=== PATIENT | female | born 1945 | race Caucasian/White ===

== ENCOUNTER 2018-01-03 16:17 | Emergency (ER) | payer OTHER ==
[~2018-01-03] VITALS: Ht 162.6 cm; Wt 52.2 kg
[~2018-01-03 16:17] MED LIST: ALBU90OI6 INH; ALEN70 PO; ALPR.25 PO; AMLO5 PO; ANAS1 PO; ATECHL PO; ATEN50 PO; Anastrozole1 GM MC; Antivert25 MG PO; BENAML20/5 PO; BENZ100A PO; BUSP15 PO; BUSP5 PO; CALCA600CH PO; CETI5 PO; CHLCLI PO; CHLORDIAZEPOXIDE; CLIDINIUM; CLON.1; CODBUTACEC PO; CODBUTASA PO; CONEST.625; ESCI20 PO; GABA100 PO; HYDACE5; HYDCHL25 PO; HYDR-86; IBUP800 PO; IMIP25; IMIP50 PO; LISI20; LORA1 PO; LOSA50; METO50ER; Micro-K10 MEQ; NAPR500 PO; OLAN2.5; OMEPRAZOLE MAGN20 MG; OXYB5; PARO20; PARO20 PO; POTCHL10ER PO; PROCODE120 PO; PROM25; PROM25 PO; RXPROCODSY PO; STOOL SOFTNERS; TRAZ100; TRAZ100 PO; VARE1 PO; VERA100; VERA100 PO; VERA180ERB PO; [UNRECOGNIZED DRUG - OTHER]
[2018-01-03] MEDS ORDERED: Norco 5-325 Ta1 EACH PO (18:16)
[2018-01-03] MEDS ORDERED: Colace100 MG PO (18:16)
== END 2018-01-03 18:26 | disposition home or self-care (01) ==
LOC: ER 16:17
DX: S82.65XA Nondisplaced fracture of lateral malleolus of left fibula, initial encounter for closed fracture (principal); I10 Essential (primary) hypertension; G40.909 Epilepsy, unspecified, not intractable, without status epilepticus; F17.200 Nicotine dependence, unspecified, uncomplicated; Z88.8 Allergy status to other drugs, medicaments and biological substances; Z79.899 Other long term (current) drug therapy; W06.XXXA Fall from bed, initial encounter
CPT/HCPCS: 29515; 73590; 73630; 99283

== ENCOUNTER 2018-01-12 12:09 | Day surgery (SDC) | payer OTHER ==
[~2018-01-12] VITALS: Ht 165.1 cm; Wt 50.9 kg
[~2018-01-12 12:09] MED LIST changes: +Colace100 MG PO; +Norco 5-325 Ta1 EACH PO
== END 2018-01-12 16:15 | disposition home or self-care (01) ==
LOC: ORSCSDS 12:09
PROVIDERS: Podiatrist Foot & Ankle Surgery
PROC: 0QSK04Z Reposition Left Fibula with Internal Fixation Device, Open Approach (ICD-10-PCS; principal; 2018-01-12 14:30)
DX: S82.62XA Displaced fracture of lateral malleolus of left fibula, initial encounter for closed fracture (principal); I10 Essential (primary) hypertension; J44.9 Chronic obstructive pulmonary disease, unspecified; F17.210 Nicotine dependence, cigarettes, uncomplicated; K21.9 Gastro-esophageal reflux disease without esophagitis; Z79.899 Other long term (current) drug therapy
CPT/HCPCS: C1713; J0171; J0690; J1170; J2250; J2405; J3010; J7120

== ENCOUNTER 2018-11-11 09:50 | Observation (INO) | payer OTHER ==
[~2018-11-11] VITALS: Ht 165.1 cm; Wt 47.7 kg
[~2018-11-11 09:50] MED LIST changes: -CLON.1; +CLON.1 PO; -OMEPRAZOLE MAGN20 MG; +OMEPRAZOLE MAGN20 MG PO; -OXYB5; +OXYB5 PO
[2018-11-11] MEDS ORDERED: ALBU90OI61 INH (10:00)
[2018-11-11 10:23] LABS: BASOPHILS ABSOLUTE AUTO 0.06 K/mm3 (0.00-0.23); BASOPHILS PERCENT AUTO 0 % (0-2); EOSINOPHILS ABSOLUTE AUTO 0.11 K/mm3 (0.00-0.68); EOSINOPHILS PERCENT AUTO 1 % (0-6); Hematocrit 43.3 % (33.0-51.0); Hemoglobin 14.8 g/dL (11.5-16.0); IMMATURE GRAN ABSOLUTE AUTO 0.06 K/mm3 (0.00-0.10); IMMATURE GRAN PERCENT AUTO 0 % (0-1); LYMPHOCYTES PERCENT AUTO 25 % (21-46); MONOCYTES ABSOLUTE AUTO 0.99 K/mm3 (0.16-1.47); MONOCYTES PERCENT AUTO 7 % (4-13); Mean Corpuscular HGB 29.8 pg (26.0-34.0); Mean Corpuscular HGB Conc 34.2 g/dL (31.5-36.5); Mean Corpuscular Volume 87 fL (80-100); Mean Platelet Volume 12.2 fL (9.1-12.4); NEUTROPHILS ABSOLUTE AUTO 9.86 K/mm3 (1.96-9.15); NEUTROPHILS PERCENT AUTO 67 % (41-73); Platelet Count 206 K/mm3 (150-400); RDW Coefficient Variation 12.1 % (11.7-14.2); RDW Standard Deviation 38.7 fL (35.1-46.3); Red Blood Cell Count 4.97 M/mm3 (3.80-5.20); White Blood Cell Count 14.68 K/mm3 (4.00-11.30)
[2018-11-11 10:32] LABS: Alanine Aminotransfer (ALT/SGP 8 U/L (12-78); Albumin, Blood 4.6 g/dL (3.4-5.0); Albumin/Globulin Ratio 1.2 (0.8-1.8); Alk Phos 81 U/L (50-136); Anion Gap 14 mmol/L (6-16); Aspartate Aminotrans (AST/SGOT 20 U/L (12-37); Bilirubin, Total 1.2 mg/dL (0.1-1.0); Blood Urea Nitrogen 10 mg/dL (8-24); Bun/Creatinine Ratio 12.8 (12.0-20.0); CO2, Blood 27 mmol/L (21-32); Calcium, Blood 10.8 mg/dL (8.5-10.1); Chloride, Blood 94 mmol/L (98-108); Creatinine, Blood 0.78 mg/dL (0.40-1.00); Globulin, Blood 3.8 g/dL (2.2-4.0); Glomerular Filtration Rate >60 (60-); Glucose, Blood 115 mg/dL (70-99); Potassium, Blood 2.8 mmol/L (3.5-5.5); Sodium, Blood 135 mmol/L (136-145); Total Protein, Blood 8.4 g/dL (6.4-8.2)
[2018-11-11 12:32] LABS: Source, Urine Clean Catch
[2018-11-11 12:49] LABS: Appearance, Urine Clear (Clear); Bilirubin, Urine Neg (Neg); Blood, Urine 1+ (Neg); Color, Urine Yellow (P-Yellow); Glucose Qualitative, Urine Neg (Neg); Ketones, Urine 3+ (Neg); Leukocyte Esterase, Urine Neg (Neg); Nitrite, Urine Neg (Neg); Protein, Urine 1+ (Neg); Specific Gravity, Urine 1.005 (1.003-1.022); Urobilinogen, Urine NORM (Normal)
[2018-11-11 13:08] LABS: Red Blood Cells, Urine 0-2 /hpf (0-2); Squamous Epithelial Cells Few /hpf (Few)
[2018-11-11 13:10] LABS: Bacteria Not Seen /hpf; White Blood Cells, Urine Rare /hpf (0-5)
[2018-11-11 13:11] LABS: Amorphous Light (0-Heavy)
[2018-11-11 15:18] LABS: Troponin I <0.015 ng/mL (0.000-0.040)
[2018-11-11] MEDS ORDERED: MELO7.5 PO (16:36)
[2018-11-11] MEDS ORDERED: BACL10 PO (16:37)
[2018-11-11] MEDS ORDERED: LOSA50 PO (16:37)
[2018-11-11] MEDS ORDERED: ALBU3IS NEB (16:38)
--- NOTE | 2018-11-12 05:13 | NUR ---
SHIFT SUMMARY PT A&O X4 T/O SHIFT. PT STS HEADACHE IMPROVED TO /10 EARLY THIS AM; PAIN MANAGED PER EMAR. NO CHANGES IN NEURO CHECKS NOTED. RA; PT DENIES SOB AND CP. TELEMETRY IN PLACE; SB PER METHODOLOGIST. NAUSEA X1. BED ALARM AND SIDE RAILS X3 FOR SAFETY. PT REPOSITIONS PT CALLS APPROPRIATELY CALL LIGHT IN REACH; PT DEMONSTRATES USE. SBA TO TOILET; ATTENDS CHANGED PRN. WCTM UNTIL REPORT TO DAY SHIFT RN.
[2018-11-12 06:05] LABS: BASOPHILS ABSOLUTE AUTO 0.01 K/mm3 (0.00-0.23); BASOPHILS PERCENT AUTO 0 % (0-2); EOSINOPHILS PERCENT AUTO 0 % (0-6); Hematocrit 33.9 % (33.0-51.0); Hemoglobin 11.4 g/dL (11.5-16.0); IMMATURE GRAN ABSOLUTE AUTO 0.05 K/mm3 (0.00-0.10); IMMATURE GRAN PERCENT AUTO 1 % (0-1); LYMPHOCYTES ABSOLUTE AUTO 1.26 K/mm3 (0.84-5.20); LYMPHOCYTES PERCENT AUTO 14 % (21-46); MONOCYTES PERCENT AUTO 10 % (4-13); Mean Corpuscular HGB 29.7 pg (26.0-34.0); Mean Corpuscular HGB Conc 33.6 g/dL (31.5-36.5); Mean Corpuscular Volume 88 fL (80-100); Mean Platelet Volume 12.2 fL (9.1-12.4); NEUTROPHILS ABSOLUTE AUTO 6.94 K/mm3 (1.96-9.15); NEUTROPHILS PERCENT AUTO 76 % (41-73); Platelet Count 133 K/mm3 (150-400); RDW Standard Deviation 38.6 fL (35.1-46.3); Red Blood Cell Count 3.84 M/mm3 (3.80-5.20); White Blood Cell Count 9.16 K/mm3 (4.00-11.30)
[2018-11-12 06:30] LABS: Anion Gap 8 mmol/L (6-16); Blood Urea Nitrogen 11 mg/dL (8-24); Bun/Creatinine Ratio 16.4 (12.0-20.0); CO2, Blood 24 mmol/L (21-32); Chloride, Blood 103 mmol/L (98-108); Creatinine, Blood 0.67 mg/dL (0.40-1.00); Glomerular Filtration Rate >60 (60-); Glucose, Blood 101 mg/dL (70-99); Potassium, Blood 3.7 mmol/L (3.5-5.5); Sodium, Blood 135 mmol/L (136-145)
[2018-11-12 06:38] LABS: Calcium, Blood 8.3 mg/dL (8.5-10.1)
--- NOTE | 2018-11-12 11:30 | NUR ---
Patient was sitting up in bed and alert when I entered the room. I introduced myself and patient welcomed me to stay. Patient immediately shared about some family unit complications and that she was possibly going home this day. I listened empathically, explored patient's belief system, explored sources of meaning, conducted a life/family history review, reinforced helpful attitudes and practices and provided prayer. Patient responded well to all interventions and showed signs of restored waqas and an elevated mood. Patient thanked me for the prayer and stated that the prayer "got to her heart."
[2018-11-12] MEDS ORDERED: NICO21TP TOP (12:15)
[2018-11-12] MEDS ORDERED: ONDA4ODT SL (12:16)
[2018-11-12] MEDS ORDERED: PROM25 PO (12:17)
[2018-11-12] MEDS ORDERED: SUMA25 PO (12:18)
[2018-11-12] MEDS ORDERED: Benadryl 50 mg50 MG PO (12:20)
[2018-11-12] MEDS ORDERED: TUMS300 MG PO (12:21)
[2018-11-12] MEDS ORDERED: NAPR500 PO (12:22)
--- NOTE | 2018-11-12 13:55 | NUR ---
PATIENT D/C'D HOME WITH DAUGHTER AT THIS TIME; BOTH STATE UNDERSTANDING OF MEDS, F/U APPTS, ETC. TOLERATING PO. VOIDING. PATIENT W/O C/O AT THIS TIME.
== END 2018-11-12 13:59 | disposition home or self-care (01) ==
LOC: ER 09:50 → MEDS 09:51 → SURS 16:44
PROVIDERS: Emergency Medicine; ADMIT Family Medicine
DX: G43.511 Persistent migraine aura without cerebral infarction, intractable, with status migrainosus (principal); I48.91 Unspecified atrial fibrillation; E87.6 Hypokalemia; D72.829 Elevated white blood cell count, unspecified; I12.9 Hypertensive chronic kidney disease with stage 1 through stage 4 chronic kidney disease, or unspecified chronic kidney disease; N18.3 Chronic kidney disease, stage 3 (moderate); F41.9 Anxiety disorder, unspecified; F32.9 Major depressive disorder, single episode, unspecified; F17.210 Nicotine dependence, cigarettes, uncomplicated; Z79.01 Long term (current) use of anticoagulants; Z88.8 Allergy status to other drugs, medicaments and biological substances; Z79.899 Other long term (current) drug therapy
CPT/HCPCS: 36415; 70450; 80048; 80053; 81001; 84443; 84484; 85025; 96361; 96365; 96366; 96367; 96375; 96376; 99285-25; G0378; J0360; J0780; J1100; J1200; J1650; J1885; J2405; J3010; J3475; J3480; J7030

== ENCOUNTER 2018-12-26 06:11 | Observation (INO) | payer OTHER ==
[~2018-12-26] VITALS: Ht 165.1 cm; Wt 41.3 kg
[~2018-12-26 06:11] MED LIST changes: +ALBU3IS NEB; +ALBU90OI61 INH; +BACL10 PO; +Benadryl 50 mg50 MG PO; +Golytely Packe1 EACH PO; +LOSA50 PO; +MELO7.5 PO; +NICO21TP TOP; +ONDA4ODT SL; +SUMA25 PO; +TUMS300 MG PO
[2018-12-26 06:50] LABS: BASOPHILS ABSOLUTE AUTO 0.04 K/mm3 (0.00-0.23); BASOPHILS PERCENT AUTO 1 % (0-2); EOSINOPHILS ABSOLUTE AUTO 0.14 K/mm3 (0.00-0.68); EOSINOPHILS PERCENT AUTO 2 % (0-6); Hematocrit 32.4 % (33.0-51.0); Hemoglobin 10.9 g/dL (11.5-16.0); IMMATURE GRAN ABSOLUTE AUTO 0.03 K/mm3 (0.00-0.10); IMMATURE GRAN PERCENT AUTO 0 % (0-1); LYMPHOCYTES ABSOLUTE AUTO 2.38 K/mm3 (0.84-5.20); LYMPHOCYTES PERCENT AUTO 29 % (21-46); MONOCYTES ABSOLUTE AUTO 0.69 K/mm3 (0.16-1.47); MONOCYTES PERCENT AUTO 8 % (4-13); Mean Corpuscular HGB 30.9 pg (26.0-34.0); Mean Corpuscular HGB Conc 33.6 g/dL (31.5-36.5); Mean Corpuscular Volume 92 fL (80-100); Mean Platelet Volume 11.6 fL (9.1-12.4); NEUTROPHILS ABSOLUTE AUTO 4.93 K/mm3 (1.96-9.15); NEUTROPHILS PERCENT AUTO 60 % (41-73); Platelet Count 172 K/mm3 (150-400); RDW Coefficient Variation 13.2 % (11.7-14.2); RDW Standard Deviation 43.6 fL (35.1-46.3); Red Blood Cell Count 3.53 M/mm3 (3.80-5.20); White Blood Cell Count 8.21 K/mm3 (4.00-11.30)
[2018-12-26 07:12] LABS: Alanine Aminotransfer (ALT/SGP 15 U/L (12-78); Albumin, Blood 4.1 g/dL (3.4-5.0); Albumin/Globulin Ratio 1.3 (0.8-1.8); Alk Phos 57 U/L (50-136); Anion Gap 10 mmol/L (6-16); Aspartate Aminotrans (AST/SGOT 18 U/L (12-37); Bilirubin, Total 0.5 mg/dL (0.1-1.0); Blood Urea Nitrogen 19 mg/dL (8-24); Bun/Creatinine Ratio 28.2 (12.0-20.0); CO2, Blood 25 mmol/L (21-32); Calcium, Blood 9.7 mg/dL (8.5-10.1); Chloride, Blood 104 mmol/L (98-108); Creatinine, Blood 0.67 mg/dL (0.40-1.00); Globulin, Blood 3.2 g/dL (2.2-4.0); Glomerular Filtration Rate >60 (60-); Glucose, Blood 99 mg/dL (70-99); Potassium, Blood 4.1 mmol/L (3.5-5.5); Sodium, Blood 139 mmol/L (136-145); Total Protein, Blood 7.3 g/dL (6.4-8.2)
[2018-12-26 07:25] LABS: Source, Urine Catheter
[2018-12-26 07:31] LABS: Appearance, Urine Clear (Clear); Bilirubin, Urine Neg (Neg); Blood, Urine Neg (Neg); Color, Urine Yellow (P-Yellow); Glucose Qualitative, Urine Neg (Neg); Ketones, Urine Neg (Neg); Leukocyte Esterase, Urine Neg (Neg); Nitrite, Urine Neg (Neg); Protein, Urine Neg (Neg); Urobilinogen, Urine NORM (Normal)
[2018-12-26] MEDS ORDERED: ELIQUIS5 MG PO (07:37)
--- NOTE | 2018-12-26 11:45 | NUR ---
PT ADMITTED PT ADMITTED AT 1140. PT IN STABLE CONDITION & VSS. PT & FAMILY ORIENTED TO ROOM. PT RESTING IN BED. CALL LIGHT IN REACH.
[2018-12-26] MEDS ORDERED: Lopressor 25 mg25 MG PO (13:36)
[2018-12-26] MEDS ORDERED: TRAZ100 PO (13:38)
[2018-12-26] MEDS ORDERED: ANAS1 PO (13:39)
[2018-12-26] MEDS ORDERED: MELO7.5 PO (13:40)
--- NOTE | 2018-12-26 19:33 | NUR ---
SHIFT SUMMARY NO ACUTE CHANGES. PATIENT DENIES NAUSEA AND SHORTNESS OF BREATH. PATIENT MEDICATED X2 FOR PAIN. PATIENT'S FAMILY AT BEDSIDE MOST OF SHIFT. CARE MANAGEMENT WORKING WITH FAMILY TO FIND PLACEMENT. REPORT GIVEN TO LINDA GLORIA.
--- NOTE | 2018-12-27 04:46 | NUR ---
SHIFT SUMMARY PT HAS SLEPT WELL DURING SHIFT. PT HAD NO COMPLAINTS OR ISSUES. PT DISCOMFORT TX PER EMAR WITH GOOD RESULTS. PT CURRENTLY SLEEPING AND BREATHING EASY. CALL LIGHT IN REACH.
--- NOTE | 2018-12-27 19:43 | NUR ---
SHIFT SUMMARY: PT VERBILIZES HALLUCINATIONS, MITCHELL DIFFERENT COLORS, HUMAN LEGS HANGING DOWN FROM THEN BOTTOM OF THE TV AND PEOPLE THAT AREN'T IN THE ROOM. PT'S DTR STS THIS HAS BEEN HAPPENING MORE FREQUENTLY. PT IS ORIENTED TO SELF, CONDITION AND LOCATION. SHE IS ABLE TO ANSWER QUESTIONS APPROP AND PARTICIPATE IN CARE. SHE IS A 2 ASSIST TO BSC. L ARM IN IMOBILIZER SLING PER ORDERS. ICE APPLIED TO L SHOULDER AND L HIP PER ORDERS. SHE IS EATING AND DRINKING WELL. PAIN HAS BEEN CONTROLLED WITH PO AND IV MEDS. HER SCHEDULED 1800 DOSE OF TYLENOL HAS NOT BEEN GIVEN, NEXT RN IS AWARE AND WILL ADMINISTER. BED ALARM ON AND IN LOWEST POSITION. PT IS ABLE TO MAKE NEEDS KNOWN AND UTILIZES CALL LIGHT APPROP.
--- NOTE | 2018-12-28 03:47 | NUR ---
SHIFT SUMMARY PATIENT HAD NO ACUTE CHANGES OBSERVED THIS SHIFT. LEFT ARM IMMOBILIZER SLING PER ORDER. ICE APPLIED TO L SHOULDER, L HIP PER ORDER. ON SCHEDULE TYLENOL. FENTANYL IV 25 MCG GIVEN PER EMAR FOR L SHOULDER/HIP PAIN X ONE. VSS/AFEBRILE. DENIES SOB AND N/V. PIV REMAINS INTACT. CALL LIGHT IN REACH. BED IN LOWEST POSITION. WILL CONTINUE TO MONITOR UNTIL DAY SHIFT NURSE ASSUMES CARE.
--- NOTE | 2018-12-28 17:57 | NUR ---
PATIENT A/O TO SELF AND FAMILY, UP WITH 1 ASSIST TO BSC. HUMEROUS FX TO L ARM, WEARING A SLING. REPORTS PAIN TO L HIP AND L ARM. MEDICATING WITH SCHEDULED TYLENOL, TRAMADOL AND FENTANTL X1. FALL PRECAUTIONS IN PLACE PER UNIT PROTOCOL. CALLS APPROPRIATELY FOR ASSISTANCE. TOLERATING CARDIAC DIET. FAMILY LOOKING IN TO PLACEMENT PATIENT NO LONGER ABLE TO LIVE ALONE.
--- NOTE | 2018-12-29 07:25 | NUR ---
confused and mobile, alarm on bed, call light in reach, bedding changed multiple times, able to get up and go to bathroom but spills things, calling out for daughter, worried that trailer has been modified beyond what is allowed in park, redirectable saline locked, room air, walking rounds completed with day staff
[2018-12-29] MEDS ORDERED: LIDOCAINE PAIN1 EACH TOP (14:56)
[2018-12-29] MEDS ORDERED: TRAM50 PO (14:57)
--- NOTE | 2018-12-29 15:21 | NUR ---
SHIFT SUMMARY/DC PT HAS HAD NO ACUTE CHANGES THIS SHIFT, NO COMPLAINTS OF ANY KIND. REVIEWED DC INSTRUCTIONS W/DAUGHTER WHO VERBALIZED UNDERSTANDING. DAUGHTER STATED SHE WLD BE STAYING W/PT PRICE LISTER UNTIL PLACEMENT WAS IN PLACE. PT WAS TRANSPORTED VIA W/C TO DC IN PRIVATE VEHICLE @ 0416.
== END 2018-12-29 15:18 | disposition home or self-care (01) ==
LOC: ER 06:11 → MEDS 10:19
PROVIDERS: Emergency Medicine; ADMIT Family Medicine
DX: S42.255A Nondisplaced fracture of greater tuberosity of left humerus, initial encounter for closed fracture (principal); F03.90 Unspecified dementia, unspecified severity, without behavioral disturbance, psychotic disturbance, mood disturbance, and anxiety; M79.672 Pain in left foot; I12.9 Hypertensive chronic kidney disease with stage 1 through stage 4 chronic kidney disease, or unspecified chronic kidney disease; N18.3 Chronic kidney disease, stage 3 (moderate); I48.91 Unspecified atrial fibrillation; F31.9 Bipolar disorder, unspecified; K21.9 Gastro-esophageal reflux disease without esophagitis; J44.9 Chronic obstructive pulmonary disease, unspecified; F41.9 Anxiety disorder, unspecified; R56.9 Unspecified convulsions; G43.909 Migraine, unspecified, not intractable, without status migrainosus; Z86.73 Personal history of transient ischemic attack (TIA), and cerebral infarction without residual deficits; Z79.02 Long term (current) use of antithrombotics/antiplatelets; Z88.8 Allergy status to other drugs, medicaments and biological substances; Z79.899 Other long term (current) drug therapy; Z87.891 Personal history of nicotine dependence; Z85.3 Personal history of malignant neoplasm of breast; Z90.710 Acquired absence of both cervix and uterus; Z90.49 Acquired absence of other specified parts of digestive tract; Z98.890 Other specified postprocedural states; X58.XXXA Exposure to other specified factors, initial encounter; Y92.410 Unspecified street and highway as the place of occurrence of the external cause
CPT/HCPCS: 36415; 70450; 72170; 73030; 73620; 80053; 81003; 85025; 96374; 96375; 96376; 99285-25; G0378; J2405; J3010

== ENCOUNTER 2019-02-10 20:30 | Inpatient (IN) | payer OTHER ==
[~2019-02-10] VITALS: Ht 160 cm; Wt 48.6 kg
[~2019-02-10 20:30] MED LIST changes: +ELIQUIS5 MG PO; +LIDOCAINE PAIN1 EACH TOP; +Lopressor 25 mg25 MG PO; +TRAM50 PO
[2019-02-10] MEDS ORDERED: MELO7.5 PO (20:43)
[2019-02-10] MEDS ORDERED: METO25ER PO (20:46)
[2019-02-10] MEDS ORDERED: BACL10 PO (20:48)
[2019-02-10] MEDS ORDERED: VITAMIN B-121000 MCG PO (20:51)
[2019-02-10] MEDS ORDERED: Vitamin D2000 UNIT PO (20:51)
[2019-02-10 21:35] LABS: Hematocrit 35.8 % (33.0-51.0); Hemoglobin 11.9 g/dL (11.5-16.0); Mean Corpuscular HGB 30.7 pg (26.0-34.0); Mean Corpuscular HGB Conc 33.2 g/dL (31.5-36.5); Mean Corpuscular Volume 92 fL (80-100); Red Blood Cell Count 3.88 M/mm3 (3.80-5.20); White Blood Cell Count 14.57 K/mm3 (4.00-11.30)
[2019-02-10 21:36] LABS: BASOPHILS ABSOLUTE AUTO 0.06 K/mm3 (0.00-0.23); BASOPHILS PERCENT AUTO 0 % (0-2); EOSINOPHILS PERCENT AUTO 1 % (0-6); IMMATURE GRAN ABSOLUTE AUTO 0.04 K/mm3 (0.00-0.10); IMMATURE GRAN PERCENT AUTO 0 % (0-1); LYMPHOCYTES ABSOLUTE AUTO 3.63 K/mm3 (0.84-5.20); LYMPHOCYTES PERCENT AUTO 25 % (21-46); MONOCYTES ABSOLUTE AUTO 1.03 K/mm3 (0.16-1.47); MONOCYTES PERCENT AUTO 7 % (4-13); Mean Platelet Volume 12.6 fL (9.1-12.4); NEUTROPHILS ABSOLUTE AUTO 9.61 K/mm3 (1.96-9.15); NEUTROPHILS PERCENT AUTO 66 % (41-73); Platelet Count 247 K/mm3 (150-400); RDW Coefficient Variation 13.2 % (11.7-14.2)
[2019-02-10 21:40] LABS: RDW Standard Deviation 44.3 fL (35.1-46.3)
[2019-02-10 21:50] LABS: Sodium, Blood 141 mmol/L (136-145)
[2019-02-10 21:51] LABS: Alanine Aminotransfer (ALT/SGP 23 U/L (12-78); Albumin, Blood 4.3 g/dL (3.4-5.0); Albumin/Globulin Ratio 1.3 (0.8-1.8); Alk Phos 77 U/L (50-136); Anion Gap 10 mmol/L (6-16); Aspartate Aminotrans (AST/SGOT 23 U/L (12-37); Bilirubin, Total 0.4 mg/dL (0.1-1.0); Blood Urea Nitrogen 14 mg/dL (8-24); Bun/Creatinine Ratio 18.2 (12.0-20.0); CO2, Blood 32 mmol/L (21-32); Calcium, Blood 10.2 mg/dL (8.5-10.1); Chloride, Blood 99 mmol/L (98-108); Creatinine, Blood 0.77 mg/dL (0.40-1.00); Globulin, Blood 3.4 g/dL (2.2-4.0); Glomerular Filtration Rate >60 (60-); Glucose, Blood 92 mg/dL (70-99); Potassium, Blood 2.9 mmol/L (3.5-5.5); Total Protein, Blood 7.7 g/dL (6.4-8.2)
--- NOTE | 2019-02-11 03:00 | NUR ---
RECIEVED HAND OFF FROM ER NURSE USING SBAR. TRANSPORTED TO ROOM VIA STRETCHER. TRANSFERED TO BED WITH FULL STAFF ASSISTANCE, TOLERATED WELL. AAO X3, ZHOU, FOLLOWS ALL COMMANDS. ORIENTED TO ROOM, CALL SYSTEM, AND POC, VOICES UNDERSTANDING. NG TUBE TO LEFT NARE IS PATENT, DRAINING COFFEE GROUND EMESIS TO LIWS. PLACEMENT VERIFIED WITH AIR BOLUS AND RESIDUAL CHECK, TOLERATED WELL. RIGHT AC 20G PIV IS PATENT, FLUSHING WITH EASE. RESPIRATIONS EVEN AND UNLABORED ON ROOM AIR. LUNG SOUNDS CLEAR BILATERALLY. ABDOMEN SOFT AND NONDISTENDED. BOWEL SOUNDS PRESENT IN ALL QUADS, CONTINENT OF BOWEL AND BLADDER, USES COMMODE. WEARS DEPENDS FOR OCCASIONAL URGENCY. DENIES FURTHER NEEDS OR WANTS AT THIS TIME. SAFETY MEASURES IN PLACE. WILL CONTINUE TO MONITOR.
--- NOTE | 2019-02-11 06:53 | NUR ---
LYING IN SEMI FOWLERS WITH EYES CLOSED AFTER ASSISTING TO BSC. INTERMITTENT CONFUSION NOTED. REPORTED EARLY ONSET DEMENTIA PER ER NURSE. RESTED WITH EASE, HAS BEEN PLEASANT, AND COOPERATIVE WITH ALL COMMANDS AND REQUESTS. DENIES FURTHER NEEDS AT THIS TIME. ADMISSION ASSESSMENT COMPLETED. SAFETY MEAURES IN PLACE. WILL GIVE HAND OFF FOR ONCOMING SHIFT USING SBAR.
[2019-02-11 10:18] LABS: Hematocrit 33.2 % (33.0-51.0); Hemoglobin 10.9 g/dL (11.5-16.0); Mean Corpuscular HGB 30.4 pg (26.0-34.0); Mean Corpuscular HGB Conc 32.8 g/dL (31.5-36.5); Mean Corpuscular Volume 93 fL (80-100); Platelet Count 226 K/mm3 (150-400); RDW Coefficient Variation 13.3 % (11.7-14.2); Red Blood Cell Count 3.59 M/mm3 (3.80-5.20); White Blood Cell Count 11.85 K/mm3 (4.00-11.30)
[2019-02-11 10:53] LABS: Alanine Aminotransfer (ALT/SGP 20 U/L (12-78); Albumin/Globulin Ratio 1.2 (0.8-1.8); Alk Phos 72 U/L (50-136); Anion Gap 9 mmol/L (6-16); Aspartate Aminotrans (AST/SGOT 20 U/L (12-37); Bilirubin, Total 0.5 mg/dL (0.1-1.0); Blood Urea Nitrogen 14 mg/dL (8-24); Bun/Creatinine Ratio 18.3 (12.0-20.0); CO2, Blood 33 mmol/L (21-32); Calcium, Blood 9.7 mg/dL (8.5-10.1); Chloride, Blood 101 mmol/L (98-108); Creatinine, Blood 0.77 mg/dL (0.40-1.00); Globulin, Blood 3.2 g/dL (2.2-4.0); Glomerular Filtration Rate >60 (60-); Glucose, Blood 97 mg/dL (70-99); Potassium, Blood 2.7 mmol/L (3.5-5.5); Sodium, Blood 143 mmol/L (136-145); Total Protein, Blood 7.2 g/dL (6.4-8.2)
[2019-02-11 16:55] LABS: Anion Gap 7 mmol/L (6-16); Blood Urea Nitrogen 17 mg/dL (8-24); Bun/Creatinine Ratio 21.1 (12.0-20.0); CO2, Blood 29 mmol/L (21-32); Calcium, Blood 9.7 mg/dL (8.5-10.1); Chloride, Blood 104 mmol/L (98-108); Glomerular Filtration Rate >60 (60-); Glucose, Blood 89 mg/dL (70-99); Magnesium, Blood 1.9 mg/dL (1.6-2.4); Potassium, Blood 3.6 mmol/L (3.5-5.5); Sodium, Blood 140 mmol/L (136-145)
--- NOTE | 2019-02-11 17:08 | NUR ---
SUMMARY PT TO SURGERY FOR ENOSCOPY. PT HAS BEEN NPO. NG REMAINS IN PLACE. 1900 ML COFFEE GROUND DRAINAGE PRESENT IN CANNISTER. NAUSEA MEDICATED PRN PER EMAR. PT DENIES BM'S. URINATING WNL. DENIES PAIN WITH THE EXCEPTION OF MILD CRAMPING. STATES SHE IS PASSING FLATUS. PT'S DAUGHTER IS AT THE BEDSIDE AND ASSISTS WITH CARE. PT IS A 1 ASSIST TO BSC. A7O WITH SLIGHT CONFUSION AT TIMES, REORIENTS QUICKLY.
--- NOTE | 2019-02-11 17:09 | NUR ---
PT TRANSPORTED TO [facility]. AGREES WITH PLANNED PROCEDURE.
--- NOTE | 2019-02-11 17:23 | NUR ---
02/11/19 1723 Paresh Win PATIENT DETERMINED TO BE ASA APPROPRIATE FOR PROPOFOL SEDATION PRIOR TO START OF PROCEDURE BY . 3-LEAD EKG REVIEWED WITH PHYSICIAN PRIOR TO START OF PROCEDURE.PATIENT CONFIRMS NPO STATUS AND AGREES WITH SCHEDULED PROCEDURE.History, Chart, Medications and Allergies reviewed before start of procedure.MONITOR INTACT WITH CONTINUOUS PULSE OXIMETRY AND INTERMITTENT BP.O2 VIA N/C INTACT THROUGHOUT SEDATION/PROCEDURE.Bite Block Placed
--- NOTE | 2019-02-11 18:35 | NUR ---
PT BACK FROM ENDOCOPY, ULCER CLIPPED. HOOKED BACK UP TO LIS ON NGT. MEDICATED FOR PAIN FOR CHRONIC SHOULDER PAIN. IV PROTONIX STARTED. CALLED DR. VALDEZ AND OBTAINED ORDER FOR IVF. PT WILL REMAIN NPO. VSS. FAMILY AT BEDSIDE. NO C/O AT THIS TIME.
[2019-02-12 05:13] LABS: BASOPHILS ABSOLUTE AUTO 0.05 K/mm3 (0.00-0.23); BASOPHILS PERCENT AUTO 1 % (0-2); EOSINOPHILS ABSOLUTE AUTO 0.35 K/mm3 (0.00-0.68); EOSINOPHILS PERCENT AUTO 3 % (0-6); Hemoglobin 8.8 g/dL (11.5-16.0); IMMATURE GRAN ABSOLUTE AUTO 0.03 K/mm3 (0.00-0.10); IMMATURE GRAN PERCENT AUTO 0 % (0-1); LYMPHOCYTES ABSOLUTE AUTO 2.67 K/mm3 (0.84-5.20); LYMPHOCYTES PERCENT AUTO 25 % (21-46); MONOCYTES ABSOLUTE AUTO 0.79 K/mm3 (0.16-1.47); MONOCYTES PERCENT AUTO 7 % (4-13); Mean Corpuscular HGB 30.8 pg (26.0-34.0); Mean Corpuscular HGB Conc 31.4 g/dL (31.5-36.5); Mean Platelet Volume 12.8 fL (9.1-12.4); NEUTROPHILS ABSOLUTE AUTO 6.82 K/mm3 (1.96-9.15); NEUTROPHILS PERCENT AUTO 64 % (41-73); Platelet Count 162 K/mm3 (150-400); RDW Coefficient Variation 13.5 % (11.7-14.2); RDW Standard Deviation 48.5 fL (35.1-46.3); Red Blood Cell Count 2.86 M/mm3 (3.80-5.20); White Blood Cell Count 10.71 K/mm3 (4.00-11.30)
[2019-02-12 05:14] LABS: Mean Corpuscular Volume 98 fL (80-100)
[2019-02-12 05:32] LABS: Anion Gap 7 mmol/L (6-16); Blood Urea Nitrogen 18 mg/dL (8-24); Bun/Creatinine Ratio 24.9 (12.0-20.0); CO2, Blood 28 mmol/L (21-32); Calcium, Blood 8.6 mg/dL (8.5-10.1); Chloride, Blood 108 mmol/L (98-108); Creatinine, Blood 0.72 mg/dL (0.40-1.00); Glomerular Filtration Rate >60 (60-); Glucose, Blood 82 mg/dL (70-99); Potassium, Blood 3.8 mmol/L (3.5-5.5); Sodium, Blood 143 mmol/L (136-145)
--- NOTE | 2019-02-12 07:30 | NUR ---
POD 1 S/P ULCER CLIPPING. PT BP REMAINED ELEVATED, IV HYDRALAZINE GIVEN W/NOTED EFFECT. PT DENIED CP/PRESSURE/SOB. NGT PUTTING OUT BROWN/COFFEE GROUND FLUID. PROTONIX GTT CONT PER ORDERS. PT REP PAIN BETTER MGD W/0.5MG IV DILAUDID. NO C/O N/V. PT NPO PER ORDERS, IVF CONT. PT WEAK WHEN UP, IS USING CALL LIGHT FOR ASSISTANCE, BED ALARM ON FOR SAFETY.
--- NOTE | 2019-02-12 18:42 | NUR ---
SUMMARY NG CLAMPED THIS AFTERNOON PER . PT TRIALED WITH SMALL AMOUNT OF ICE CHIPS AND CLEARS. PT TOLERATING WITH NO NAUSEA AT THIS TIME. PT IS PASSING FLATUS, DENIES PAIN, VOIDING WNL. ATIVAN ORDERED FOR ANXIETY. BED ALSRM ON FOR SAFETY. PT CALLS FOR ASSISTANCE PRN. CALL LIGHT IN REACH. TM
--- NOTE | 2019-02-13 01:45 | NUR ---
PT HR TRENDING UP, HR IS 114 AT 2226. UPON ASCULTATION, HEAT BEAT IS IRREGULAR, PT HAS HX OF AFIB. BP IS ALSO 177/101. WILL GIVE 10MG HYDRALAZINE AND CTM. PT DENIES DIZZINESS, CHEST PAIN, SOB, PT IS A/O, RESPONDING TO QUESTIONS.
--- NOTE | 2019-02-13 02:09 | NUR ---
PT HR CONTINUING TO BE TACHYCARDIC, PT NOT ON TELE. DEMARCUS HAZEL CALLED AT 2300. ONE DOSE OF PT'S HOME TOPROL ORDERED TO BE GIVEN NOW. YASEMIN DOES NOT WANT PT ON TELE AT THIS TIME. UPON REASSESSMENT PT HR IS 117-125, UNABLE TO TELL AN AVERAGE. PT BP DECREASED TO 90/44. PT ASYMPTOMATIC. HEAD OF BED PUT DOWN AND FEET RAISED, FLUIDS ARE RUNNING, PT IS A/O. WELD INSPECTORYANCI NOTIFIED OF PT STATUS. WILL HOLD PO TOPROL AT THIS TIME AND CTM PT BP/HR
--- NOTE | 2019-02-13 06:22 | NUR ---
PT BP STABLE AT 0219, SEE VS ABLE TO GIVE PO TOPROL. PT ASYMPTOMATIC. TELE VERIFIED AT 0308, AFIB, RVR, HR 150S. NO CHANGE IN PT STATUS, A/0, RESTING WELL. DR. MEDINA CALLED AT 0320, RETURNED CALL AT 0345. 5MG IV LOPRESSOR GIVEN AT 0406. PT CONVERTED TO NSR, HR 87 AT 0424. TELE STRIPS PLACED IN CHART. WILL CTM
--- NOTE | 2019-02-13 06:34 | NUR ---
SUMMARY: SEE PREVIOUS NOTES. PT VSS THIS AM. PT HAS DENIED NAUSEA TONIGHT. NGT HAS REMAINED CLAMPED AND IS TOLERATING CLEAR LIQ DIET. PT REPORTED PAIN AT THROAT, HURRICANE SPRAY GIVEN OTHERWISE NO REPORT OF PAIN. UP WITH SBA TO COMMODE. PROTONIX DRIP AND FLUIDS INFUSING. BED ALARM ON TONIGHT. NO SAFETY CONCERNS AT THIS TIME
--- NOTE | 2019-02-13 08:54 | NUR ---
OXYGEN: PT WEANED TO 4L HIGH FLOW THIS AM. PT SATS 91% BUT WORK OF BREATHING INCREASED, RR30. INCREASED O2 BACK TO 5L.
--- NOTE | 2019-02-13 11:58 | NUR ---
IMAGING: PT TO HAVE ABD XRAY. BASED ON RESULTS, MAY POSSIBLY HAVE NGT DC'D THIS AFTERNOON. WILL MONITOR RESULTS.
--- NOTE | 2019-02-13 14:21 | NUR ---
CONSTIPATION: PT ABD XRAY SHOWING MOD AMT STOOL ON COLON. PT HAS NOT HAD BM SINCE SUNDAY 02/11. MOM GIVEN PER EMAR. PT UP TO COMMODE TO ATTEMPT BM WITH ONLY FLATUS. NGT CONT TO BE CLAMPED, NO NAUSEA. LILLIANA CLEARS.
--- NOTE | 2019-02-13 17:16 | NUR ---
PT HAS BEEN STABLE THIS SHIFT. NAUSEA X1 THIS AM. NGT UNCLAMPED UNTIL NAUSEA RESOLVED, THEN RECLAMPED. PT LILLIANA CLEARS WELL. VOIDING WELL. SBA TO COMMODE NEEDED. REPEAT ABD XR THIS AFTERNOON. MOM GIVEN PER EMAR FOR NOTED CONSTIPATION ON XRAY. PT PASSING FLATUS. PAIN MANAGED WITH PRN FENTANYL. HURRICAINE SPRAY X1 FOR SORE THROAT. CONT FLUIDS AND PROTONIX GGT PER ORDERS. PT HAS BEEN SR ON TELE T/O SHIFT. USES CALL LIGHT APPROPRIATELY NEEDED.
[2019-02-14 04:17] LABS: BASOPHILS ABSOLUTE AUTO 0.04 K/mm3 (0.00-0.23); BASOPHILS PERCENT AUTO 1 % (0-2); EOSINOPHILS ABSOLUTE AUTO 0.45 K/mm3 (0.00-0.68); EOSINOPHILS PERCENT AUTO 6 % (0-6); Hematocrit 25.8 % (33.0-51.0); Hemoglobin 8.1 g/dL (11.5-16.0); IMMATURE GRAN ABSOLUTE AUTO 0.02 K/mm3 (0.00-0.10); IMMATURE GRAN PERCENT AUTO 0 % (0-1); LYMPHOCYTES ABSOLUTE AUTO 2.14 K/mm3 (0.84-5.20); LYMPHOCYTES PERCENT AUTO 28 % (21-46); MONOCYTES ABSOLUTE AUTO 0.65 K/mm3 (0.16-1.47); MONOCYTES PERCENT AUTO 8 % (4-13); Mean Corpuscular HGB 30.9 pg (26.0-34.0); Mean Corpuscular HGB Conc 31.4 g/dL (31.5-36.5); Mean Corpuscular Volume 99 fL (80-100); Mean Platelet Volume 12.3 fL (9.1-12.4); NEUTROPHILS ABSOLUTE AUTO 4.42 K/mm3 (1.96-9.15); NEUTROPHILS PERCENT AUTO 57 % (41-73); Platelet Count 153 K/mm3 (150-400); RDW Coefficient Variation 13.7 % (11.7-14.2); RDW Standard Deviation 49.4 fL (35.1-46.3); Red Blood Cell Count 2.62 M/mm3 (3.80-5.20); White Blood Cell Count 7.72 K/mm3 (4.00-11.30)
--- NOTE | 2019-02-14 07:21 | NUR ---
SUMMARY: NO CHANGE TONIGHT. VSS. PT REPORTED ABD PAIN X1, MEDICATED. DENIED NAUSEA, NO EMESIS. NO BM TONIGHT. WILL CTM AND REPORT TO DAY RN
--- NOTE | 2019-02-14 12:55 | NUR ---
NG TUBE OUT PER MD ORDER AT APPROX 1045. PT TOLERATED WELL. FAMILY IN ROOM FOR REMOVAL.
--- NOTE | 2019-02-14 18:35 | NUR ---
SHIFT SUMMARY PT POD3 GASTRIC OUTLET REPAIR, TELE IN PLACE NSR 74 PER GAS TURBINE ASSEMBLER , NO COMPLAINTS OF PAIN OR NAUSEA. NO DIFFICULTY BREATHING. PRN ATIVAN ONCE BEFORE NG TUBE REMOVAL. PT ALERT AND ORIENTED, PLEASANT AFFECT THROUGHOUT SHIFT.
--- NOTE | 2019-02-15 05:01 | NUR ---
SUMMARY: NO CHANGE TONIGHT. VSS, TELE NSR. PT HAS DENIED NAUSEA AND PAIN. TOLERATING LIQUID DIET. UP WITH SBA TO COMMODE, BED ALARM ON FOR SAFETY, NO ATTEMPTS OOB ALONE TONIGHT. PT REPORTS "FEELING GREAT" WILL REPORT TO DAY RN
--- NOTE | 2019-02-15 10:21 | NUR ---
L UPPER ARM IV PATENT NO DOCUMENTATION ON IV INSERTION. PT STATES IT WAS PLACED 02/12/19.
--- NOTE | 2019-02-15 15:46 | NUR ---
DISCHARGED DC'D IV, CATHETER INTACT. REMOVED AND RETURNED TELE UNIT. REVIEWED DC INSTRUCTIONS W/PT AND DAUGHTER; VERBALIZED UNDERSTANDING. PRESCRIPTION CALLED TO [facility]
== END 2019-02-15 16:00 | disposition home or self-care (01) | DRG 384 ==
LOC: ER 20:30 → SURS 02-11 00:54
PROVIDERS: Emergency Medicine; Hospitalist; Internal Medicine Gastroenterology; ADMIT Internal Medicine
PROC: 0DJ08ZZ Inspection of Upper Intestinal Tract, Via Natural or Artificial Opening Endoscopic (ICD-10-PCS; principal; 2019-02-11 14:00)
DX: K25.9 Gastric ulcer, unspecified as acute or chronic, without hemorrhage or perforation (principal); K31.1 Adult hypertrophic pyloric stenosis; N18.3 Chronic kidney disease, stage 3 (moderate); J44.9 Chronic obstructive pulmonary disease, unspecified; I48.91 Unspecified atrial fibrillation; F31.9 Bipolar disorder, unspecified; Z90.49 Acquired absence of other specified parts of digestive tract; Z85.3 Personal history of malignant neoplasm of breast; I12.9 Hypertensive chronic kidney disease with stage 1 through stage 4 chronic kidney disease, or unspecified chronic kidney disease
CPT/HCPCS: 36415; 74019; 74177; 80048; 80053; 83690; 83735; 85025; 85027; 93005; 93010; 96361; 96374-59; 96375; 99285-25; C9113; J0360; J1170; J1650; J2060; J2405; J2704; J3010; J3480; J7030; J7120; Q9967

== ENCOUNTER 2019-04-22 07:53 | Observation (INO) | payer OTHER ==
[~2019-04-22] VITALS: Ht 163 cm; Wt 52.4 kg
[~2019-04-22 07:53] MED LIST changes: +CYAN500 PO; +METO25ER PO; +PROLIA60 MG/1 ML SC; +VITAMIN B-121000 MCG PO; +Vitamin D2000 UNIT PO
--- NOTE | 2019-04-22 10:15 | NUR ---
"DAY SURGERY RN | ADMIT AND TRANSFER TO OR Patient was admitted to day surgery by wheelchair. Daughter with patient. Patient voided prior to surgery. Confirmed with patient and daughter that daughter (Seema) may sign for patient. All interventions complete. No issues. Both doctors spoke with patient. Rayon Winder has seen. Patient transferred via gurney to OR."
--- NOTE | 2019-04-22 12:48 | NUR ---
1210-PT RESP CONTINUE LABORED. WHEEZES THROUGH LUNGS. DR. GROVE NOTIFIED AND VENTOLIN UDN GIVEN. 1220-PT STARTED ON IS PER DR. GROVE. FAIR EFFORT FROM PT .
--- NOTE | 2019-04-22 12:54 | NUR ---
using incentive spirometer, biox 99 on 3l nc. denies pain or nausea
--- NOTE | 2019-04-22 18:00 | NUR ---
L HIP DRESSING CONTINUES TO HAVE MODERATE OUTPUT. DRESSING CHANGED USING STERILE TECHNIQUE. AQUACEL DRESSING PLACED OVER INCISION. ABD PAD AND COMPRESSION TAPE PLACED OVER AQUACEL. WOUND WAS CLEANSED WITH ALCOHOL PER ORDER.
--- NOTE | 2019-04-22 19:52 | NUR ---
SHIFT SUMMARY PAIN HAS BEEN MANAGED WITH PO PAIN MEDICATION POST OP. PT IS A 1 ASSIST WHEN OOB AND WAS ABLE TO WORK WITH THERAPY TODAY. PT IS VOIDING WELL AND TOLERATING PO. VSS. WILL MONITOR UNTIL REPORT TO ONCOMING RN.
[2019-04-23 04:24] LABS: BASOPHILS ABSOLUTE AUTO 0.01 K/mm3 (0.00-0.23); BASOPHILS PERCENT AUTO 0 % (0-2); EOSINOPHILS PERCENT AUTO 0 % (0-6); Hematocrit 24.7 % (33.0-51.0); Hemoglobin 7.7 g/dL (11.5-16.0); IMMATURE GRAN ABSOLUTE AUTO 0.05 K/mm3 (0.00-0.10); IMMATURE GRAN PERCENT AUTO 0 % (0-1); LYMPHOCYTES ABSOLUTE AUTO 1.16 K/mm3 (0.84-5.20); LYMPHOCYTES PERCENT AUTO 10 % (21-46); MONOCYTES PERCENT AUTO 6 % (4-13); Mean Corpuscular HGB 28.8 pg (26.0-34.0); Mean Corpuscular HGB Conc 31.2 g/dL (31.5-36.5); Mean Corpuscular Volume 93 fL (80-100); Mean Platelet Volume 12.4 fL (9.1-12.4); NEUTROPHILS PERCENT AUTO 84 % (41-73); Platelet Count 151 K/mm3 (150-400); RDW Coefficient Variation 12.5 % (11.7-14.2); RDW Standard Deviation 42.5 fL (35.1-46.3); Red Blood Cell Count 2.67 M/mm3 (3.80-5.20); White Blood Cell Count 12.22 K/mm3 (4.00-11.30)
--- NOTE | 2019-04-23 07:04 | NUR ---
SHIFT SUMMARY HAS RESTED WITH EASE THIS SHIFT. ASSISTED WITH AMBULATION TO BSC NEEDED. PAIN HAS BEEN MANAGED WITH PO PAIN MEDS. DEINES FURTHER NEEDS. SAFETY MEASURES IN PLACE. WILL CONTINUE TO MONITOR.
[2019-04-23] MEDS ORDERED: HYDR1TAB94 PO (12:42)
--- NOTE | 2019-04-23 14:10 | NUR ---
DISCHARGED HOME WITH FAMILY
== END 2019-04-23 14:07 | disposition home or self-care (01) ==
LOC: ORSCMMR 07:53 → ORD 09:00 → ORSCMMR 09:30 → SURS 11:57
PROVIDERS: ADMIT Orthopaedic Surgery
PROC: 0QB70ZX Excision of Left Upper Femur, Open Approach, Diagnostic (ICD-10-PCS; principal; 2019-04-22 09:30)
PROC: 0QH906Z Insertion of Intramedullary Internal Fixation Device into Left Femoral Shaft, Open Approach (ICD-10-PCS; principal; 2019-04-22 09:30)
DX: C79.51 Secondary malignant neoplasm of bone (principal); M84.552A Pathological fracture in neoplastic disease, left femur, initial encounter for fracture; I10 Essential (primary) hypertension; G89.4 Chronic pain syndrome; F41.9 Anxiety disorder, unspecified; F32.9 Major depressive disorder, single episode, unspecified; F43.10 Post-traumatic stress disorder, unspecified; Z87.891 Personal history of nicotine dependence
CPT/HCPCS: 36415; 85025; 88305; 88311; 88342; 96366; 97110; 97116; 97162; 97166; 97530; 97535; A9270-GY; C1713; C1769; G0378; J0690; J1100; J2405; J2704; J3010; J7050; J7120

== ENCOUNTER 2019-04-30 11:38 | Day surgery (SDC) | payer OTHER ==
[2019-04-29 13:58] LABS: BASOPHILS ABSOLUTE AUTO 0.02 K/mm3 (0.00-0.23); BASOPHILS PERCENT AUTO 0 % (0-2); EOSINOPHILS ABSOLUTE AUTO 0.19 K/mm3 (0.00-0.68); EOSINOPHILS PERCENT AUTO 2 % (0-6); Hematocrit 22.3 % (33.0-51.0); Hemoglobin 6.7 g/dL (11.5-16.0); IMMATURE GRAN ABSOLUTE AUTO 0.05 K/mm3 (0.00-0.10); IMMATURE GRAN PERCENT AUTO 1 % (0-1); LYMPHOCYTES ABSOLUTE AUTO 1.94 K/mm3 (0.84-5.20); LYMPHOCYTES PERCENT AUTO 24 % (21-46); MONOCYTES ABSOLUTE AUTO 0.62 K/mm3 (0.16-1.47); MONOCYTES PERCENT AUTO 8 % (4-13); Mean Corpuscular HGB 28.4 pg (26.0-34.0); Mean Corpuscular Volume 95 fL (80-100); NEUTROPHILS ABSOLUTE AUTO 5.12 K/mm3 (1.96-9.15); NEUTROPHILS PERCENT AUTO 65 % (41-73); NRBC ABSOLUTE 0.02 K/mm3 (0.00-0.02); NRBC Auto 0.3 /100 WBC (0.0-0.2); Platelet Count 242 K/mm3 (150-400); RDW Coefficient Variation 13.3 % (11.7-14.2); RDW Standard Deviation 45.9 fL (35.1-46.3); Red Blood Cell Count 2.36 M/mm3 (3.80-5.20); White Blood Cell Count 7.94 K/mm3 (4.00-11.30)
[2019-04-29 14:12] LABS: Percent Saturation 15.7 % (15.0-50.0)
[2019-04-29 14:18] LABS: Alanine Aminotransfer (ALT/SGP 21 U/L (12-78); Albumin, Blood 3.1 g/dL (3.4-5.0); Alk Phos 108 U/L (50-136); Anion Gap 5 mmol/L (6-16); Aspartate Aminotrans (AST/SGOT 21 U/L (12-37); Bilirubin, Total 0.9 mg/dL (0.1-1.0); Blood Urea Nitrogen 14 mg/dL (8-24); Bun/Creatinine Ratio 19.6 (12.0-20.0); CO2, Blood 27 mmol/L (21-32); Calcium, Blood 9.4 mg/dL (8.5-10.1); Chloride, Blood 110 mmol/L (98-108); Creatinine, Blood 0.72 mg/dL (0.40-1.00); Glomerular Filtration Rate >60 (60-); Glucose, Blood 88 mg/dL (70-99); Potassium, Blood 3.9 mmol/L (3.5-5.5); Sodium, Blood 142 mmol/L (136-145); Total Protein, Blood 6.1 g/dL (6.4-8.2)
[~2019-04-30 11:38] MED LIST changes: +HYDR1TAB94 PO
--- NOTE | 2019-04-30 15:48 | NUR ---
PT URINATED ON HER UNDERWEAR. ATTEMPTED TO CHANGE PT INTO PULL UP DIAPER. PT VERY TEARFULL WITH NEW FX SURG IN HIP. SISTER AT BEDSIDE AND ASSISTED RN WITH REPOSITIONING PT.
[2019-04-30] MEDS ORDERED: ACET325 PO (17:04)
[2019-04-30] MEDS ORDERED: BISA10S PR (17:06)
[2019-04-30] MEDS ORDERED: HYDR1TAB94 PO (17:06)
[2019-04-30] MEDS ORDERED: ALL DAY ALLERGY10 MG PO (17:16)
[2019-04-30] MEDS ORDERED: Aluminum H320 MG/5 M PO (17:17)
--- NOTE | 2019-04-30 17:25 | NUR ---
PT STANDBY ASSIST TO BEDSIDE COMMODE. CLEAR YELLOW URINE NOTED
--- NOTE | 2019-04-30 17:54 | NUR ---
FAMILY MEMBER STATES PT HAS BEEN OFF AN ON SHORT OF BREATH. FAMILY MEMBER NOTICING SOB NOW. SPO2 98%. EXPIRATORY WHEEZE NOTED WHEN LISTENING TO BREATH SOUNDS ON ANTERIOR CHEST WHEN LISTENING TO BREATH SOUNDS ON BACK LUNGS SOUND CLEAR. POSSIBLE INCREASE IN PHLEGM FROM EATING ICE CREAM CAUSING THE WHEEZE SOUND WHEN LISTENING TO ANTERIOR CHEST. DISCUSSED GOING TO ER FOR BREATHING TX AND EVALUATION. PT DECLINED. PT ADVISED [facility] HAS PRN INHALERS ORDERED FOR SOB. FAMILY MEMBER TO REQUEST INHALER TREATMENT WHEN THEY RETURN TO [facility]. IF ANY CHANGES OCCUR WHILE HERE WE WILL SEND HER TO THE ER FOR EVALUATION. DISCUSSED DEEP BREATHING WITH PT. PT GIVEN A STRAW TO PERFORM PURSED LIP BREATHING EXERCISES. PT DEMONSTRATES WELL.
== END 2019-04-30 18:45 | disposition home or self-care (01) ==
LOC: ATC 11:38 → EDSTATUS 11:39 → ATC 18:45
PROVIDERS: Internal Medicine Hematology & Oncology
DX: C50.412 Malignant neoplasm of upper-outer quadrant of left female breast (principal); I10 Essential (primary) hypertension; I48.0 Paroxysmal atrial fibrillation; K21.9 Gastro-esophageal reflux disease without esophagitis; G43.909 Migraine, unspecified, not intractable, without status migrainosus; J45.30 Mild persistent asthma, uncomplicated; F43.10 Post-traumatic stress disorder, unspecified; F41.9 Anxiety disorder, unspecified; F32.9 Major depressive disorder, single episode, unspecified; F01.50 Vascular dementia, unspecified severity, without behavioral disturbance, psychotic disturbance, mood disturbance, and anxiety; Z79.899 Other long term (current) drug therapy; Z79.01 Long term (current) use of anticoagulants; Z86.73 Personal history of transient ischemic attack (TIA), and cerebral infarction without residual deficits
CPT/HCPCS: 36415; 36430; 80053; 82728; 83540; 83550; 85025; 86850; 86900; 86901; 86923; A9270; J7050; P9016

== ENCOUNTER 2019-06-16 06:44 | Day surgery (SDC) | payer OTHER ==
[~2019-06-16] VITALS: Ht 160 cm; Wt 55.7 kg
[~2019-06-16 06:44] MED LIST changes: +ACET325 PO; +ALL DAY ALLERGY10 MG PO; +Aluminum H320 MG/5 M PO; +BISA10S PR
== END 2019-06-16 23:59 | disposition home or self-care (01) ==
LOC: ORSCSDS 06:44
PROVIDERS: Internal Medicine Gastroenterology
PROC: 0DB68ZX Excision of Stomach, Via Natural or Artificial Opening Endoscopic, Diagnostic (ICD-10-PCS; principal; 2019-06-16 08:00)
DX: Z87.11 Personal history of peptic ulcer disease (principal); D64.9 Anemia, unspecified; K20.9 Esophagitis, unspecified; K31.5 Obstruction of duodenum; J45.909 Unspecified asthma, uncomplicated; I10 Essential (primary) hypertension; F43.10 Post-traumatic stress disorder, unspecified; F41.8 Other specified anxiety disorders; Z87.891 Personal history of nicotine dependence; Z79.01 Long term (current) use of anticoagulants; Z79.899 Other long term (current) drug therapy
CPT/HCPCS: 88305; 88342; J2405; J2704; J7120

== ENCOUNTER 2019-08-14 08:40 | Emergency (ER) | payer OTHER ==
[~2019-08-14] VITALS: Ht 167.6 cm; Wt 68.0 kg
[2019-08-14] MEDS ORDERED: CHLO25B PO (09:09)
[2019-08-14] MEDS ORDERED: Fentanyl1 EACH TOP (09:13)
[2019-08-14] MEDS ORDERED: ONDA4ODT (09:18)
[2019-08-14] MEDS ORDERED: Anti-Diarrheal2 MG (09:18)
[2019-08-14] MEDS ORDERED: Milk Of Ma400 MG/5 M (09:18)
[2019-08-14] MEDS ORDERED: DOCU100 (09:19)
[2019-08-14 09:34] LABS: BASOPHILS ABSOLUTE AUTO 0.03 K/mm3 (0.00-0.23); BASOPHILS PERCENT AUTO 0 % (0-2); EOSINOPHILS ABSOLUTE AUTO 0.23 K/mm3 (0.00-0.68); EOSINOPHILS PERCENT AUTO 2 % (0-6); Hematocrit 33.8 % (33.0-51.0); IMMATURE GRAN ABSOLUTE AUTO 0.03 K/mm3 (0.00-0.10); IMMATURE GRAN PERCENT AUTO 0 % (0-1); LYMPHOCYTES ABSOLUTE AUTO 2.47 K/mm3 (0.84-5.20); LYMPHOCYTES PERCENT AUTO 25 % (21-46); MONOCYTES ABSOLUTE AUTO 0.75 K/mm3 (0.16-1.47); MONOCYTES PERCENT AUTO 8 % (4-13); Mean Corpuscular HGB 28.9 pg (26.0-34.0); Mean Corpuscular HGB Conc 32.5 g/dL (31.5-36.5); Mean Corpuscular Volume 89 fL (80-100); NEUTROPHILS ABSOLUTE AUTO 6.43 K/mm3 (1.96-9.15); NEUTROPHILS PERCENT AUTO 65 % (41-73); Platelet Count 216 K/mm3 (150-400); RDW Coefficient Variation 13.8 % (11.7-14.2); RDW Standard Deviation 45.1 fL (35.1-46.3); White Blood Cell Count 9.94 K/mm3 (4.00-11.30)
[2019-08-14 09:43] LABS: Alanine Aminotransfer (ALT/SGP 28 U/L (12-78); Albumin, Blood 3.6 g/dL (3.4-5.0); Albumin/Globulin Ratio 1.1 (0.8-1.8); Alk Phos 104 U/L (50-136); Anion Gap 8 mmol/L (6-16); Aspartate Aminotrans (AST/SGOT 28 U/L (12-37); Bilirubin, Total 0.2 mg/dL (0.1-1.0); Blood Urea Nitrogen 21 mg/dL (8-24); Bun/Creatinine Ratio 25.2 (12.0-20.0); CO2, Blood 29 mmol/L (21-32); Calcium, Blood 9.2 mg/dL (8.5-10.1); Chloride, Blood 101 mmol/L (98-108); Creatinine, Blood 0.83 mg/dL (0.40-1.00); Globulin, Blood 3.4 g/dL (2.2-4.0); Glomerular Filtration Rate >60 (60-); Glucose, Blood 132 mg/dL (70-99); Potassium, Blood 3.7 mmol/L (3.5-5.5); Sodium, Blood 138 mmol/L (136-145)
[2019-08-14 11:14] LABS: Source, Urine Clean Catch
[2019-08-14 11:39] LABS: Appearance, Urine Clear (Clear); Bilirubin, Urine Neg (Neg); Blood, Urine Neg (Neg); Color, Urine Yellow (P-Yellow); Glucose Qualitative, Urine Neg (Neg); Ketones, Urine Neg (Neg); Leukocyte Esterase, Urine 1+ (Neg); Nitrite, Urine Neg (Neg); Protein, Urine Neg (Neg); Specific Gravity, Urine 1.015 (1.003-1.022); Urobilinogen, Urine NORM (Normal)
[2019-08-14 11:58] LABS: Bacteria Few /hpf; Red Blood Cells, Urine Not Seen /hpf (0-2); Squamous Epithelial Cells Few /hpf (Few)
[2019-08-14] MEDS ORDERED: Cephalexin500 M1 PO (12:04)
== END 2019-08-14 14:19 | disposition home or self-care (01) ==
LOC: ER 08:40
PROVIDERS: Emergency Medicine
DX: E86.0 Dehydration (principal); C50.919 Malignant neoplasm of unspecified site of unspecified female breast; C79.51 Secondary malignant neoplasm of bone; C79.89 Secondary malignant neoplasm of other specified sites; R30.9 Painful micturition, unspecified; J44.9 Chronic obstructive pulmonary disease, unspecified; I12.9 Hypertensive chronic kidney disease with stage 1 through stage 4 chronic kidney disease, or unspecified chronic kidney disease; N18.9 Chronic kidney disease, unspecified; D63.1 Anemia in chronic kidney disease; D72.829 Elevated white blood cell count, unspecified; Z87.891 Personal history of nicotine dependence; Z88.4 Allergy status to anesthetic agent; Z79.01 Long term (current) use of anticoagulants; Z79.891 Long term (current) use of opiate analgesic
CPT/HCPCS: 80053; 81001; 85025; 87086; 93005; 93010; 96361; 96374; 96375; 99284-25; J2270; J2405; J7030

== ENCOUNTER → 2019-10-04 | Outpatient (CLI) | payer OTHER ==
[~2019-10-04] MED LIST changes: +Anti-Diarrheal2 MG; +CHLO25B PO; +Cephalexin500 M1 PO; +DOCU100; +Fentanyl1 EACH TOP; +Milk Of Ma400 MG/5 M; +ONDA4ODT
[2019-10-04 15:49] LABS: Bilirubin, Urine Neg (Neg); Blood, Urine 3+ (Neg); Glucose Qualitative, Urine Neg (Neg); Ketones, Urine Neg (Neg); Leukocyte Esterase, Urine 3+ (Neg); Nitrite, Urine Neg (Neg); Protein, Urine 2+ (Neg); Urobilinogen, Urine NORM (Normal)
[2019-10-04 16:04] LABS: Appearance, Urine Hazy (Clear); Color, Urine Yellow (P-Yellow)
[2019-10-04 16:07] LABS: Bacteria Many /hpf; Squamous Epithelial Cells Few /hpf (Few); White Blood Cells, Urine TNTC /hpf (0-5)
== END ==
LOC: LAB SHORT 13:24 → LAB 13:24
PROVIDERS: Student in an Organized Health Care Education/Training Program
DX: N39.0 Urinary tract infection, site not specified (principal)
CPT/HCPCS: 81001; 87077; 87086; 87186

== ENCOUNTER 2020-12-20 11:54 | Day surgery (SDC) | payer OTHER ==
[~2020-12-20] VITALS: Ht 160 cm; Wt 51.6 kg
[~2020-12-20 11:54] MED LIST changes: -Aluminum H320 MG/5 M PO; -Anti-Diarrheal2 MG; +Anti-Diarrheal2 MG PO; +Buspirone HCl15 MG PO; -DOCU100; +DOCU100 PO; +Duoneb 2.5-0.5 M3 ML NEB; +Eq Liquid Anta769 ML PO; +FENT50TP TOP; -Fentanyl1 EACH TOP; -LOSA50 PO; +LOSARTAN POTAS100 M1 PO; +MICROZIDE12.5 MG PO; -Milk Of Ma400 MG/5 M; +Milk Of Ma400 MG/5 M PO; +Norco 10-325 T1 EACH PO; +OMEP20ER PO; -OMEPRAZOLE MAGN20 MG PO; -ONDA4ODT; +SALONPAS 3.1%-1 EACH TOP
--- NOTE | 2020-12-20 13:14 | NUR ---
12/20/20 1314 Berna Salinas DURING ADMISSION PT LOST BOWEL CONTROL, DID NOT MAKE IT TO THE BATHROOM. ASSISTED PT TO CLEAN UP AND PROVIDED NEW BRIEFS. PRIOR TO TRANSFERING FROM PRE OP TO OR PT LOST BOWEL CONTROL. 2 NURSE ASSIST, CLEAN UP, NEW BRIEFS PROVIDED.
== END 2020-12-20 14:05 | disposition home or self-care (01) ==
LOC: ORSCSDS 11:54
PROVIDERS: Ophthalmology
PROC: 08BQXZZ Excision of Right Lower Eyelid, External Approach (ICD-10-PCS; principal; 2020-12-20 13:00)
DX: H02.032 Senile entropion of right lower eyelid (principal); H16.211 Exposure keratoconjunctivitis, right eye; Z87.891 Personal history of nicotine dependence; I10 Essential (primary) hypertension; I48.0 Paroxysmal atrial fibrillation; Z79.01 Long term (current) use of anticoagulants; J45.909 Unspecified asthma, uncomplicated; Z79.899 Other long term (current) drug therapy
CPT/HCPCS: A9270; J0171; J2250; J2704; J3010; J7120

== ENCOUNTER 2021-11-26 12:07 | Day surgery (SDC) | payer OTHER ==
--- NOTE | 2021-11-26 12:45 | NUR ---
PT APPEARS TO BE IN SINUS RHYTHM ON THE MONITOR. EKG PERFORMED, SHOWS NSR. DR SCHWARTZ AWARE, WILL COME AND SPEAK WITH PATIENT AND DAUGHTER PRIOR TO DISCHARGE.
== END 2021-11-26 23:21 | disposition home or self-care (01) ==
LOC: MHTC 12:07
DX: I48.0 Paroxysmal atrial fibrillation (principal); I10 Essential (primary) hypertension; J44.9 Chronic obstructive pulmonary disease, unspecified; F17.200 Nicotine dependence, unspecified, uncomplicated; Z88.4 Allergy status to anesthetic agent; Z79.01 Long term (current) use of anticoagulants
CPT/HCPCS: 93005; 93010

== ENCOUNTER 2021-12-29 12:03 | Observation (INO) | payer OTHER ==
[~2021-12-29] VITALS: Ht 152.4 cm; Wt 56.0 kg
[~2021-12-29 12:03] MED LIST changes: -Anti-Diarrheal2 MG PO; -FENT50TP TOP; +FENTANYL1 EA10 TOP; +LOPE2C PO; +LOSA50 PO; -LOSARTAN POTAS100 M1 PO
[2021-12-29] MEDS ORDERED: Amiodarone HCl200 MG PO (12:09)
[2021-12-29] MEDS ORDERED: ANASTROZOLE1 M7 PO (12:10)
[2021-12-29] MEDS ORDERED: ATORVASTATIN CA20 MG PO (12:11)
[2021-12-29] MEDS ORDERED: CHLO25B PO (12:12)
[2021-12-29] MEDS ORDERED: FENT200LOZ MM (12:13)
[2021-12-29] MEDS ORDERED: HYDROCODONE-AC1 EAC7 PO (12:14)
[2021-12-29] MEDS ORDERED: Potassium Chlo20 ME1 PO (12:14)
[2021-12-29 19:12] LABS: Hematocrit 30.9 % (33.0-51.0); Hemoglobin 10.3 g/dL (11.5-16.0); Mean Corpuscular HGB 29.4 pg (26.0-34.0); Mean Corpuscular HGB Conc 33.3 g/dL (31.5-36.5); Mean Corpuscular Volume 88 fL (80-100); Mean Platelet Volume 11.6 fL (9.1-12.4); Platelet Count 181 K/mm3 (150-400); RDW Coefficient Variation 12.6 % (11.7-14.2); RDW Standard Deviation 40.7 fL (35.1-46.3); White Blood Cell Count 12.18 K/mm3 (4.00-11.30)
[2021-12-29 19:30] LABS: Anion Gap 6 mmol/L (6-16); Blood Urea Nitrogen 12 mg/dL (8-24); Bun/Creatinine Ratio 14.2 (12.0-20.0); CO2, Blood 27 mmol/L (21-32); Calcium, Blood 9.4 mg/dL (8.5-10.1); Chloride, Blood 99 mmol/L (98-108); Creatinine, Blood 0.84 mg/dL (0.40-1.00); Glomerular Filtration Rate >60 (60-); Glucose, Blood 120 mg/dL (70-99); Potassium, Blood 3.8 mmol/L (3.5-5.5); Sodium, Blood 132 mmol/L (136-145)
--- NOTE | 2021-12-29 21:54 | NUR ---
Received patient to unit at 1999. alert and oriented x's 4. No acute distress noted, respirations even and unlabored, bilateral lung sounds diminished,RA. Denies pain at rest, upon repositioning complains of discomfort to right hip. Oriented patient to room and call baires, verbalized understanding. Safety maintained.
--- NOTE | 2021-12-30 04:38 | NUR ---
Alert and oriented x's 4. Medicated with Percocet x's 1, due to right hip pain, effective relief. Respirations even and unlabored. Slept well through night. Safety maintained, call baires reach.
[2021-12-30 05:06] LABS: BASOPHILS ABSOLUTE AUTO 0.03 K/mm3 (0.00-0.23); BASOPHILS PERCENT AUTO 0 % (0-2); EOSINOPHILS ABSOLUTE AUTO 0.26 K/mm3 (0.00-0.68); EOSINOPHILS PERCENT AUTO 4 % (0-6); Hemoglobin 9.9 g/dL (11.5-16.0); IMMATURE GRAN ABSOLUTE AUTO 0.01 K/mm3 (0.00-0.10); IMMATURE GRAN PERCENT AUTO 0 % (0-1); LYMPHOCYTES ABSOLUTE AUTO 1.17 K/mm3 (0.84-5.20); LYMPHOCYTES PERCENT AUTO 16 % (21-46); MONOCYTES ABSOLUTE AUTO 0.48 K/mm3 (0.16-1.47); MONOCYTES PERCENT AUTO 7 % (4-13); Mean Corpuscular HGB 29.5 pg (26.0-34.0); Mean Corpuscular Volume 89 fL (80-100); Mean Platelet Volume 11.7 fL (9.1-12.4); NEUTROPHILS ABSOLUTE AUTO 5.17 K/mm3 (1.96-9.15); NEUTROPHILS PERCENT AUTO 73 % (41-73); Platelet Count 155 K/mm3 (150-400); RDW Coefficient Variation 12.8 % (11.7-14.2); RDW Standard Deviation 41.6 fL (35.1-46.3); Red Blood Cell Count 3.36 M/mm3 (3.80-5.20); White Blood Cell Count 7.12 K/mm3 (4.00-11.30)
[2021-12-30 05:28] LABS: Alanine Aminotransfer (ALT/SGP 20 U/L (12-78); Alk Phos 81 U/L (50-136); Anion Gap 5 mmol/L (6-16); Aspartate Aminotrans (AST/SGOT 19 U/L (12-37); Bilirubin, Total 0.4 mg/dL (0.1-1.0); Blood Urea Nitrogen 14 mg/dL (8-24); Bun/Creatinine Ratio 16.6 (12.0-20.0); CO2, Blood 30 mmol/L (21-32); Calcium, Blood 9.1 mg/dL (8.5-10.1); Chloride, Blood 101 mmol/L (98-108); Creatinine, Blood 0.84 mg/dL (0.40-1.00); Globulin, Blood 3.1 g/dL (2.2-4.0); Glomerular Filtration Rate >60 (60-); Glucose, Blood 100 mg/dL (70-99); Potassium, Blood 3.6 mmol/L (3.5-5.5); Sodium, Blood 136 mmol/L (136-145); Total Protein, Blood 6.1 g/dL (6.4-8.2)
--- NOTE | 2021-12-30 12:32 | NUR ---
PATIENT WAS ABLE TO WALK WITH WALKER WITH PT TODAY AND PAIN WAS MANAGED WELL WITH MEDICATIONS. PATIENT A AND O 4X [place] AND SLIGHTLY DROWSY AT TIMES. NO OTHER ACUTE EVENTS THUS FAR.
[2021-12-31 04:41] LABS: BASOPHILS ABSOLUTE AUTO 0.02 K/mm3 (0.00-0.23); BASOPHILS PERCENT AUTO 0 % (0-2); EOSINOPHILS ABSOLUTE AUTO 0.38 K/mm3 (0.00-0.68); EOSINOPHILS PERCENT AUTO 6 % (0-6); Hematocrit 28.3 % (33.0-51.0); Hemoglobin 9.5 g/dL (11.5-16.0); IMMATURE GRAN ABSOLUTE AUTO 0.02 K/mm3 (0.00-0.10); IMMATURE GRAN PERCENT AUTO 0 % (0-1); LYMPHOCYTES ABSOLUTE AUTO 1.31 K/mm3 (0.84-5.20); LYMPHOCYTES PERCENT AUTO 20 % (21-46); MONOCYTES ABSOLUTE AUTO 0.59 K/mm3 (0.16-1.47); MONOCYTES PERCENT AUTO 9 % (4-13); Mean Corpuscular HGB 29.8 pg (26.0-34.0); Mean Corpuscular HGB Conc 33.6 g/dL (31.5-36.5); Mean Corpuscular Volume 89 fL (80-100); Mean Platelet Volume 11.4 fL (9.1-12.4); NEUTROPHILS ABSOLUTE AUTO 4.36 K/mm3 (1.96-9.15); NEUTROPHILS PERCENT AUTO 65 % (41-73); Platelet Count 150 K/mm3 (150-400); RDW Coefficient Variation 12.5 % (11.7-14.2); RDW Standard Deviation 40.4 fL (35.1-46.3); Red Blood Cell Count 3.19 M/mm3 (3.80-5.20); White Blood Cell Count 6.68 K/mm3 (4.00-11.30)
[2021-12-31 05:24] LABS: Anion Gap 7 mmol/L (6-16); Blood Urea Nitrogen 12 mg/dL (8-24); Bun/Creatinine Ratio 16.1 (12.0-20.0); CO2, Blood 28 mmol/L (21-32); Calcium, Blood 9.2 mg/dL (8.5-10.1); Chloride, Blood 95 mmol/L (98-108); Creatinine, Blood 0.75 mg/dL (0.40-1.00); Glomerular Filtration Rate >60 (60-); Glucose, Blood 102 mg/dL (70-99); Phosphorus, Blood 3.1 mg/dL (2.5-4.9); Potassium, Blood 3.4 mmol/L (3.5-5.5); Sodium, Blood 130 mmol/L (136-145)
--- NOTE | 2021-12-31 06:15 | NUR ---
Alert and oriented X's 4. Medicated with Percocet x's 2 through night due to right hip pain, effective relief. Moderate assist to BSC. Incontinent episode of bowel and bladder. Safety maintained, call baires in reach
--- NOTE | 2021-12-31 12:35 | NUR ---
REPORT GIVEN TO HERNANDO HURLEY AT [facility] AT 1230. REPORT GIVEN THAT PATIENT CAN GET UP WITH A WALKER TAKE A FEW STEPS AND PIVOT AND THAT PATIENT WILL HAVE [facility] COME BY FOR FUTHER ASSISTANCE AND THERAPY. FACILITY HAS NO FUTHER QUESTIONS AND NOTIFIED THAT PATIENT WILL ARRIVE SOMETIME AFTER 3PM VIA PERSONAL VEHICLE BY DAUGHTER.
[2021-12-31] MEDS ORDERED: CALCITONIN-SAL3.7 M1 (13:54)
--- NOTE | 2021-12-31 15:47 | NUR ---
Received referral from nurse health care facility administrator (Diane Swartz) on 12/31/2021. Patient discharged 12/31/2021 with orders for home health and elected [facility]. Contacted patient at number listed on demographic sheet and spoke with patient's daughter (Erum Tim) to further discuss the above. Patient's daughter is agreeable to the above. Discussed homebound status definition with patient's daughter. Patient's daughter verbalized understanding. Discussed what home health is vs what it is not (in home caregivers/housekeeping). Patient's daughter verbalized understanding. Discussed the next steps in the process of an initial assessment to determine frequency of visits. Again patient's daughter verbalized understanding. Offered a chance for patient's daughter to ask questions regarding the above of which there were none. Gathered all supporting documentation for referral (face sheet, face to face, med list, H&P, discharge summary, and most recent PT assessment) and sent to [facility] for review. No further interventions required. Susana Carvajal Referral Liaison
== END 2021-12-31 14:54 | disposition home health service (06) ==
LOC: ER 12:03 → MEDS 21:03 → ER 21:03 → MEDS 21:03 → EDPENDDIS 12-31 10:43 → ENPENDDIS 12-31 10:43 → MEDS 12-31 14:54
PROVIDERS: Family Medicine; Nurse Practitioner Acute Care; ADMIT Hospitalist
DX: S32.591A Other specified fracture of right pubis, initial encounter for closed fracture (principal); G89.4 Chronic pain syndrome; I12.9 Hypertensive chronic kidney disease with stage 1 through stage 4 chronic kidney disease, or unspecified chronic kidney disease; N18.30 Chronic kidney disease, stage 3 unspecified; K21.9 Gastro-esophageal reflux disease without esophagitis; I48.20 Chronic atrial fibrillation, unspecified; J44.9 Chronic obstructive pulmonary disease, unspecified; F11.20 Opioid dependence, uncomplicated; M81.0 Age-related osteoporosis without current pathological fracture; F41.1 Generalized anxiety disorder; Z88.4 Allergy status to anesthetic agent; W19.XXXA Unspecified fall, initial encounter; Z79.01 Long term (current) use of anticoagulants; Z87.891 Personal history of nicotine dependence
CPT/HCPCS: 36415; 72192; 73502; 80048; 80053; 84100; 85025; 85027; 96374; 96375; 96376; 97110; 97116; 97162; 99285-25; A9270; G0378; J1885; J2405; J7030

== ENCOUNTER → 2022-01-31 | Outpatient (CLI) | payer OTHER ==
[~2022-01-31] MED LIST changes: +ANASTROZOLE1 M7 PO; +ATORVASTATIN CA20 MG PO; +Amiodarone HCl200 MG PO; +CALCITONIN-SAL3.7 M1; +FENT200LOZ MM; +HYDROCODONE-AC1 EAC7 PO; +Potassium Chlo20 ME1 PO
[2022-01-31 13:38] LABS: Source, Urine Voided
[2022-01-31 15:18] LABS: Appearance, Urine Clear (Clear); Bilirubin, Urine Neg (Neg); Blood, Urine Neg (Neg); Color, Urine Yellow (P-Yellow); Glucose Qualitative, Urine Neg (Neg); Ketones, Urine Neg (Neg); Leukocyte Esterase, Urine Neg (Neg); Nitrite, Urine Neg (Neg); Protein, Urine Neg (Neg); Urobilinogen, Urine NORM (Normal)
== END | disposition home or self-care (01) ==
LOC: LAB SHORT 11:05
PROVIDERS: Student in an Organized Health Care Education/Training Program
DX: R82.90 Unspecified abnormal findings in urine (principal)
CPT/HCPCS: 81003

== ENCOUNTER → 2022-03-25 | Outpatient (CLI) | payer OTHER ==
[2022-03-25 15:48] LABS: Appearance, Urine Clear (Clear); Bilirubin, Urine Neg (Neg); Blood, Urine Neg (Neg); Color, Urine Yellow (P-Yellow); Glucose Qualitative, Urine Neg (Neg); Ketones, Urine Neg (Neg); Leukocyte Esterase, Urine Neg (Neg); Nitrite, Urine Neg (Neg); Protein, Urine Neg (Neg); Urobilinogen, Urine 1+ (Normal); pH, Urine 6.5 (5.0-8.0)
== END | disposition home or self-care (01) ==
LOC: LAB SHORT 12:00 → LAB 12:00
PROVIDERS: Student in an Organized Health Care Education/Training Program
DX: N39.0 Urinary tract infection, site not specified (principal)
CPT/HCPCS: 81003; 87086